=== PATIENT | female | born 1975 | race Caucasian/White ===

== ENCOUNTER 2018-09-09 06:23 | Emergency (ER) | payer OTHER ==
[~2018-09-09] VITALS: Ht 154.9 cm; Wt 76.2 kg
[~2018-09-09 06:23] MED LIST: ALPRAZOLAM2 MG PO; BACTRIM DS TAB1 EAC1 PO; CYMBALTA60 MG PO; KEFLEX500 M1 PO; NORCO 10-325 T1 EACH PO; NYSTATIN15 GM; PROTONIX40 M1 PO; SENOKOT-S1 TA1 PO; VYVANSE70 MG PO; ZANTAC 150MG T150 MG PO; ZANTAC300 MG PO
[2018-09-09] MEDS ORDERED: BACTRIM DS TAB1 EACH PO (07:51)
[2018-09-09 07:56] VITALS: BP 145/64
== END 2018-09-09 07:59 | disposition home or self-care (01) ==
LOC: ER 06:23
DX: M79.5 Residual foreign body in soft tissue (principal); L02.511 Cutaneous abscess of right hand; K21.9 Gastro-esophageal reflux disease without esophagitis; F32.9 Major depressive disorder, single episode, unspecified; F90.9 Attention-deficit hyperactivity disorder, unspecified type; Z90.49 Acquired absence of other specified parts of digestive tract; F17.210 Nicotine dependence, cigarettes, uncomplicated

== ENCOUNTER 2018-11-12 06:13 | Emergency (ER) | payer OTHER ==
[~2018-11-12] VITALS: Ht 154.9 cm; Wt 73.5 kg
[~2018-11-12 06:13] MED LIST changes: +BACTRIM DS TAB1 EACH PO
[2018-11-12] MEDS ORDERED: BACTRIM DS TAB1 EACH PO (06:29)
[2018-11-12 07:29] VITALS: BP 160/93
== END 2018-11-12 07:31 | disposition home or self-care (01) ==
LOC: ER 06:13
DX: S60.456A Superficial foreign body of right little finger, initial encounter (principal); K21.9 Gastro-esophageal reflux disease without esophagitis; F17.210 Nicotine dependence, cigarettes, uncomplicated; X58.XXXA Exposure to other specified factors, initial encounter; Y93.89 Activity, other specified; Y92.89 Other specified places as the place of occurrence of the external cause; Y99.8 Other external cause status

== ENCOUNTER 2019-02-09 07:33 | Emergency (ER) | payer OTHER ==
[~2019-02-09] VITALS: Ht 154.9 cm; Wt 75.8 kg
[2019-02-09 07:38] VITALS: BP 165/77
[2019-02-09] MEDS ORDERED: POLYMYXIN B/TMP10 ML OPHTHALMIC (07:49)
== END 2019-02-09 07:51 | disposition home or self-care (01) ==
LOC: ER 07:33
DX: L73.2 Hidradenitis suppurativa (principal); H10.9 Unspecified conjunctivitis; F17.210 Nicotine dependence, cigarettes, uncomplicated; K21.9 Gastro-esophageal reflux disease without esophagitis; F90.9 Attention-deficit hyperactivity disorder, unspecified type; F32.9 Major depressive disorder, single episode, unspecified

== ENCOUNTER 2019-07-19 07:36 | Emergency (ER) | payer BC, OTHER ==
[~2019-07-19] VITALS: Ht 154.9 cm; Wt 77.1 kg
[~2019-07-19 07:36] MED LIST changes: +POLYMYXIN B/TMP10 ML OPHTHALMIC
[2019-07-19 08:11] LABS: URINE BLOOD 3+ (Negative); URINE CLARITY CLEAR; URINE COLOR YELLOW; URINE GLUCOSE-RANDOM* NEGATIVE (Negative); URINE KETONES NEGATIVE (Negative); URINE PROTEIN (DIPSTICK) 2+ (Negative)
[2019-07-19 08:14] LABS: ICTOTEST (BILI CONFIRMATORY) Negative (Negative); URINE BILIRUBIN NEGATIVE (Negative); URINE LEUKOCYTES-REFLEX 3+ (Negative); URINE NITRITE-REFLEX POSITIVE (Negative)
[2019-07-19 08:17] LABS: ABSOLUTE NEUTROPHILS 13.6 thou/uL (1.4-8.2); BASOPHILS 0.3 % (0.0-2.0); EOSINOPHILS 0.2 % (0.0-3.0); HEMOGLOBIN 12.1 gm/dL (12.0-15.0); LYMPHOCYTES 5.5 % (24.0-44.0); MCH 29.2 pg (26.0-34.0); MCHC 32.7 g/dL (28.0-37.0); MCV 89.3 fL (80.0-100.0); MONOCYTES 7.2 % (1.0-8.0); PLATELET COUNT 222 thou/uL (150-400); POLYS 86.8 % (36.0-66.0); RBC 4.14 mil/uL (4.20-5.00); RDW 15.3 % (10.5-14.5); WBC 15.7 thou/uL (4.0-11.0)
[2019-07-19 08:23] LABS: BACTERIA-REFLEX >30 Many /HPF (None Seen); CASTS None Seen /LPF (None Seen); CRYSTALS None Seen /LPF (None Seen); SQUAMOUS >10 Many /LPF (0-3); URINE WBC-REFLEX >25 Many /HPF (0-5); WBC CLUMPS Moderate (None Seen)
[2019-07-19 08:39] LABS: ALBUMIN 2.6 g/dL (3.4-5.0); CREATININE 1.1 mg/dL (0.6-1.0); DIRECT BILIRUBIN 0.9 mg/dL (<0.1-0.3); TOTAL BILIRUBIN 1.5 mg/dL (<0.1-1.0); TOTAL PROTEIN 7.1 g/dL (6.4-8.2)
[2019-07-19 08:43] LABS: POTASSIUM 2.7 mmol/L (3.5-5.1)
[2019-07-19 12:36] VITALS: BP 143/77
== END 2019-07-19 12:38 | disposition short-term general hospital (02) ==
LOC: ER 07:36
PROVIDERS: Emergency Medicine
DX: A41.9 Sepsis, unspecified organism (principal); N12 Tubulo-interstitial nephritis, not specified as acute or chronic; N20.1 Calculus of ureter; E78.6 Lipoprotein deficiency; R11.2 Nausea with vomiting, unspecified; F32.9 Major depressive disorder, single episode, unspecified; F90.9 Attention-deficit hyperactivity disorder, unspecified type; K21.9 Gastro-esophageal reflux disease without esophagitis; F17.210 Nicotine dependence, cigarettes, uncomplicated; Z98.84 Bariatric surgery status; Z90.49 Acquired absence of other specified parts of digestive tract; Z90.89 Acquired absence of other organs